=== PATIENT | female | born 1940 | race Caucasian/White ===

== ENCOUNTER 2021-03-10 11:00 | Outpatient (RCR) | payer MEDICARE, SELFPAY | END 2021-03-21 10:51 | disposition home or self-care (01) | LOC: HO.OT 11:00 | PROVIDERS: Visit Provider Orthopaedic Surgery | DX: Z48.89 Encounter for other specified surgical aftercare (principal) | CPT/HCPCS: 29130; 97035; 97110; 97140; 97165; 97597; 97760 ==

== ENCOUNTER 2025-05-10 09:00 | Outpatient (RCR) | payer MEDICARE, OTHER, SELFPAY | END 2025-05-10 14:08 | disposition home or self-care (01) | LOC: HO.PT 09:00 | PROVIDERS: PCP Physician Assistant Medical; Visit Provider Nurse Practitioner Family | DX: R26.81 Unsteadiness on feet (principal); R53.1 Weakness; Z91.81 History of falling | CPT/HCPCS: 97110; 97112; 97140; 97162 ==